=== PATIENT | female | born 1960 | race Caucasian/White ===

== ENCOUNTER 2019-01-27 09:15 | Inpatient (IN) | payer SELFPAY ==
--- NOTE | 2019-01-27 09:56 | RAD ---
EXAM: 3 views of the left wrist HISTORY: Wrist pain after fall COMPARISON: None FINDINGS: 3 views of the left wrist shows a comminuted intra-articular distal radius fracture and ass ociated ulnar styloid fracture. Moderate overlying soft tissue tissue swelling is seen. No degenerative changes are present. IMPRESSION: Distal radius and associated ulnar styloid fracture
[2019-01-27] MEDS ORDERED: Bupivacaine 0.5% 10 ML VIAL ONE (10:09)
[2019-01-27] MEDS ORDERED: Ketorolac Tromethamine 30 MG/ML VIAL ONE (10:09)
[2019-01-27] MEDS ORDERED: Adacel (T-DAP) 0.5 ML SYRINGE ONE (10:21)
[2019-01-27 10:31] LABS: #Eosinphils 0.1 thou/uL (0.0-0.7); #Lymphocytes 2.7 thou/uL (1.20-3.40); #Monocytes 0.6 thou/uL (0.11-0.59); #Neutrophils 7.9 thou/uL (1.40-6.50); %Basophils 0.3 % (0.0-1.0); %Eosinophils 0.7 % (0.0-10.0); %Lymphocytes 24.3 % (21.0-51.0); %Neutrophils 69.8 % (42.0-75.0); Hemoglobin 15.9 g/dL (12.0-16.0); Mean Corpuscular HGB CONC 34.9 g/dL (32.0-36.0); Mean Corpuscular Hemoglobin 31.8 pg (27.0-31.0); Mean Corpuscular Volume 91.2 fL (78.0-98.0); Mean Platelet Volume 6.6 fL (7.4-10.4); Platelet Count 296 thou/uL (130-400); RBC Distribution Width 11.7 % (11.5-14.5); White Blood Cell (WBC) Count 11.3 thou/uL (4.8-10.8)
[2019-01-27 10:36] LABS: INR-International Normal Ratio 0.9; PTT 31.5 SEC (22.9-36.1); Prothrombin Time 12.5 SEC (12.0-14.7)
--- NOTE | 2019-01-27 10:38 | RAD ---
CHEST 1 VIEW: Date: 01/27/19 HISTORY: Preoperative evaluation. FINDINGS: Heart size is normal. The lungs are clear. No confluent pneumonia, overt edema, or pleural effusion. IMPRESSION: No acute intrathoracic disease. POS: OFF
[2019-01-27] MEDS ORDERED: GENTAMICIN SULFATE IVPB SCH (11:00)
[2019-01-27] MEDS ORDERED: CEFAZOLIN 2 GM in Premix Bag 1 BAG IVPB SCH (11:00)
[2019-01-27] MEDS ORDERED: ADMIXTURE FEE CHEMO IVPB SCH (11:00)
[2019-01-27] MEDS ORDERED: [UNRECOGNIZED DRUG - OTHER] IVPB SCH (11:00)
[2019-01-27 11:01] LABS: ALT (SGPT) 15 U/L (8-55); AST (SGOT) 16 U/L (5-34); Albumin 4.6 g/dL (3.5-5.0); Alkaline Phosphatase 81 U/L (40-150); Anion Gap 14 mmol/L (10-20); BUN (Urea Nitrogen) 14 mg/dL (9.8-20.1); Bilirubin, Total 0.4 mg/dL (0.2-1.2); Calc. Creatinine Clearance 0 mL/min (70-130); Calcium 9.9 mg/dL (7.8-10.44); Carbon Dioxide 26 mmol/L (22-29); Chloride 102 mmol/L (98-107); Estimated GFR-MDRD 66; Globulin 3.5 g/dL (2.4-3.5); Glucose 111 mg/dL (70-105); Potassium 3.9 mmol/L (3.5-5.1); Protein, Total 8.1 g/dL (6.0-8.3); Sodium 138 mmol/L (136-145)
--- NOTE | 2019-01-27 11:05 | CON ---
DATE OF CONSULTATION: This is Luis Schmidt PA-C dictating a report for Kvng Sykes MD. HISTORY OF PRESENT ILLNESS: We were asked by ER to see the patient. The patient is a very sweet 58-year-old female who has recently moved to the area from [place]. Her daughter works at [employer] in the [employer] The patient was walking her dog when a pit bull became interested in her dog. The dog backed into her and knocked her back where she fell with an outstretched hand ended up with a left distal wrist fracture. She has no other issues and is for the most part quite healthy. Did not hit her head. No loss of consciousness. No numbness or tingling in the hand. Any movement of that hand or wrist causes her extensive pain. PAST MEDICAL HISTORY: Positive for diet-controlled cholesterol. She has been known to have hypotension. PAST SURGICAL HISTORY: She has had a couple of lumpectomies, episiotomy repairs, and apparently she had some form of surgery on the same wrist when she was 10, but doing x-rays, I see no hardware. MEDICATION: OTC vitamins. ALLERGIES: NONE, BUT SHE WOULD LIKE TO STAY WAY FROM PAIN MEDICATIONS BECAUSE SHE IS IN REMISSION. SOCIAL HISTORY: Not currently working, but worked for the [place] [employer] for some years. Smokes less than a 4th of pack cigarettes a day. No alcohol or drug products whatsoever. FAMILY HISTORY: For this incident is noncontributory. REVIEW OF SYSTEMS: No chest pain or shortness of breath. No bowel or bladder problems. No neurologic problems. Her only complaints currently are left wrist pain. Otherwise, rest of review of systems negative. PHYSICAL EXAMINATION: GENERAL: Well-nourished, well-developed female, alert, pleasant, in mild distress, a little tearful over her current situation, but speech is clear. Alert and oriented x3. HEENT: Normal exam. Face symmetric. Tongue midline. NECK: Supple. Trachea midline. RESPIRATORY: No distress. Breathing 16 respirations a minute. EXTREMITIES: Upper extremities; equal size, shape, symmetry. Normal bulk and tone with the exception of the left wrist, which is definitely not aligned. She has good movement to the digits and good sensations, but her wrist is quite tender. She also has a puncture on the volar side, quite small. She is awaiting a hematoma block with straightening. ASSESSMENT: Left distal radius fracture, open. PLAN: The patient has been n.p.o., has not had anything to eat today. We will plan on adding her on to the operating room schedule for a distal radius repair. I have explained the procedure to the patient, the risks and benefits, and her questions and concerns have been addressed and she is amenable to go forth with surgery. Job ID: [id number]
--- NOTE | 2019-01-27 11:44 | RAD ---
EXAM: 3 views of the left wrist HISTORY: Distal radius fracture COMPARISON: 01/27/2019 FINDINGS: 3 views of the left wrist shows a comminuted fracture of the distal radius and associated u lnar styloid fracture. An overlying splint obscures fine bony and soft tissue detail. IMPRESSION: Distal radius and ulnar styloid fracture
[2019-01-27] MEDS ORDERED: hydrALAZINE 20 MG/ML VIAL SLOW IVP PRN (11:54)
[2019-01-27] MEDS ORDERED: Dextrose 5% in Water 1,000 ML IV PRN (11:54)
[2019-01-27] MEDS ORDERED: Dextrose 50% Abboject 50 ML SYRINGE SLOW IVP PRN (11:54)
[2019-01-27] MEDS ORDERED: Ondansetron PF 4 MG/2 ML Vial IVP PRN (11:54)
[2019-01-27] MEDS ORDERED: Promethazine HCl 25 MG/ML VIAL IM/IV PRN (11:54)
[2019-01-27] MEDS ORDERED: Cyclobenzaprine 10 MG TAB PO PRN (11:57)
[2019-01-27] MEDS ORDERED: traMADol HCl 50 MG TAB PO PRN (11:57)
--- NOTE | 2019-01-27 12:34 | HP ---
TRAUMA SURGEON: Dr. Frausto. CONSULTING PHYSICIAN: Dr. Sykes. HISTORY OF PRESENT ILLNESS: The patient is a 58-year-old female, who presented to the emergency department after a mechanical fall this morning while walking her dog. She drove herself to the emergency department. She reported a loose dog charged towards her dog. This caused her dog to back into her and she fell onto her butt. She did notice that she had a left-sided wrist deformity with bleeding. She was able to ambulate to her car and put her dog away before coming to the emergency department. Upon arrival, it was noted that she had a left open distal radius ulnar fracture. Dr. Sykes of Orthopedic Surgery was consulted and evaluated the patient and they recommended operative fixation. At the time of my evaluation, the patient reported mild sided left wrist pain. She denied loss of consciousness or anticoagulation use. She was able to ambulate without difficulties. She denied any spinal pain. Denied neck pain. Denied hitting her head. REVIEW OF SYSTEMS: All additional 10-point review of systems negative except as indicated above. PAST MEDICAL HISTORY: The patient has a history of hyperlipidemia. She does not take any medication for it and just controls it with diet and exercise. Also, has a history of alcohol abuse. She has been sober for 11 years. She is concerned about taking habit-forming pain medications. PAST SURGICAL HISTORY: The patient had surgery on her left wrist at the age of 9 or 10. She also had two lumpectomies of the left breast, which were both benign. SOCIAL HISTORY: The patient does smoke cigarettes. She has not had alcohol in the past 11 years. Denies any other history of drug use. She lives at home alone with her dog. MEDICATIONS: The patient takes, 1. Vitamins. 2. Calcium [id number]. No prescription medications. ALLERGIES: NO KNOWN DRUG ALLERGIES. PHYSICAL EXAMINATION: VITAL SIGNS: Temperature 98.2, pulse 72, respirations 22, oxygen saturation 98% on room air, blood pressure 124/68. PRIMARY SURVEY: Airway intact. Adequate breath sounds bilaterally. 2+pulses in the bilateral radials, femorals, and DPs bilaterally. GCS is 15. Gross motor and sensation are intact. No lacerations, bruising, or external bleeding noted. Left upper extremity with a splint from her fingers to her left elbow. Previously reported that there was an open fracture at that site by the emergency room physician. There was no active bleeding at the time of my evaluation. SECONDARY SURVEY: HEAD: Normocephalic and atraumatic. No gross palpable skull deformities or tenderness. EYES: Pupils 3 to 2, equal, round, reactive to light bilaterally. ENT: No hemotympanum. No epistaxis. No septal hematoma. Midface, stable to manipulation. No blood in the oropharynx. Dentition is intact. No anterior neck injury/crepitus/tenderness. C-SPINE: No step-offs or deformities, nontender. C-collar not in place. CHEST: Nontender. No abrasions or ecchymosis noted. No crepitus. Equal chest movement. ABDOMEN: Soft, nontender, nondistended. PELVIS: Stable to manipulation. No abrasions or ecchymosis noted. RECTAL: Deferred. GENITOURINARY: Deferred. EXTREMITIES: No gross deformities. There is a splint to the left upper extremity from the fingers to the elbow with no signs of bleeding. No abrasions or ecchymosis. 2+ pulses in the bilateral radials, femorals, and DPs. BACK/SPINE: No step-offs, deformities, or tenderness to palpation of the thoracic or lumbar spine. No abrasions or ecchymosis noted. NEUROLOGIC: 5/5 strength in bilateral energy scheduler, plantar flexion, dorsiflexion. Grossly normal sensation x4. EXTREMITIES: GCS is 15. LABORATORY FINDINGS: White count 11.3, hemoglobin 15.9, hematocrit 45.6, platelets 296. INR 0.9. Sodium 138, potassium 3.9, chloride 102, carbon dioxide 26, BUN 14, creatinine 0.87, glucose 111, total bilirubin 0.4, AST 16, ALT 15. DIAGNOSTIC FINDINGS: X-ray of the left wrist demonstrates distal radius and associated ulnar styloid fracture. Chest x-ray demonstrates no acute intrathoracic process. X-ray of the left wrist demonstrates distal radius and ulnar styloid fracture. ASSESSMENT: 1. Status post mechanical fall from standing. 2. Left open distal radius ulnar fracture. 3. History of alcohol abuse, sober 11 years. PLAN: The patient will be admitted to the Trauma Service and is planning to go to the OR today with Orthopedic Surgery for fixation of the left distal open radius ulnar fracture. She has received antibiotics and tetanus in the emergency department. Postoperatively, the patient will work with Physical and Occupational Therapy. It is likely she will need IV antibiotics, which will cause her to be admitted overnight. She will be able to be discharged home as soon as her pain is well controlled. She is tolerating a regular diet and is able to work with Physical and Occupational Therapy. The patient does not want to take addictive pain medications as she has a history of alcohol abuse. The patient will be discussed with Dr. Frausto after this dictation. Job ID: [id number]
[2019-01-27] MEDS ORDERED: Acetaminophen 1,000 MG in Premix Bag 1 BAG IVPB SCH (13:00)
[2019-01-27] MEDS ORDERED: Fentanyl 100 MCG/2 ML VIAL ONE ×2 (15:17→16:06)
[2019-01-27] MEDS ORDERED: Midazolam HCl 2 mg/2 ml Vial ONE (15:17)
[2019-01-27] MEDS ORDERED: HYDROcodone/Acetaminophen 5/325 mg Tablet ONE ×2 (18:26)
--- NOTE | 2019-01-27 18:57 | RAD ---
TWO VIEWS OF THE LEFT WRIST: 01/27/19 COMPARISON: 01/27/19. HISTORY: Distal radius fracture. FINDINGS/IMPRESSION: Two limited intraoperative fluoroscopic views shows the patient to be status post ORIF of the comminu duc distal radius fracture with a plate and screws. There is much improved alignment of the fracture. POS: C
[2019-01-27] MEDS: Sodium Chloride 0.9% 1,000 ML IV SCH (19:50)
[2019-01-27] MEDS: Gabapentin 100 MG CAP PO SCH ×2 (19:51→20:16)
[2019-01-27] MEDS: CEFAZOLIN 2 GM in Premix Bag 1 BAG IVPB SCH (19:51)
[2019-01-27] MEDS: Ibuprofen 600 MG TAB PO SCH ×2 (19:53→21:45)
[2019-01-27] MEDS: Acetaminophen 1,000 MG in Premix Bag 1 BAG IVPB SCH ×2 (19:58→20:16)
[2019-01-27] MEDS: Senokot S 8.6-50 MG TAB PO SCH (20:16)
[2019-01-27] MEDS: Famotidine 20 MG TAB PO SCH (20:16)
[2019-01-27] MEDS ORDERED: Bupivacaine HCl 0.5%/Epinephrine 1:200,000/PF 30 ml Vial ONE (21:06)
[2019-01-27] MEDS: traMADol HCl 50 MG TAB PO PRN (21:45)
[2019-01-27 21:48] VITALS: BMI 25.7
--- NOTE | 2019-01-27 21:52 | PRG ---
DATE OF SERVICE: 01/27/2019 SUBJECTIVE: This is a 58-year-old female status post mechanical fall. The patient is postop repair of left open distal radius ulnar fracture by Dr. Sykes earlier today. The patient is awake, alert, in no distress. The patient reports that her pain is well controlled at this time. The patient is tolerating fluids and regular diet at this time. OBJECTIVE: VITAL SIGNS: Stable, afebrile. GENERAL: Middle-aged female, sitting up in hospital bed, in no acute distress. RESPIRATORY: Equal chest rise and fall, no respiratory distress. EXTREMITIES: Splint to left upper extremity, positive movement and sensation to fingers, cap refill less than 2. ASSESSMENT: 1. Status post mechanical fall from standing. 2. Left open distal radius ulnar fracture, postop repair. 3. History of alcohol abuse, sober 11 years. 4. Acute traumatic pain. PLAN: Continue regular diet as tolerated. Stop IV maintenance fluids in the morning if the patient continues to tolerate regular diet. Continue IV antibiotics per Ortho. We will have Physical and Occupational Therapy work with the patient tomorrow. The plan was discussed with the patient who agrees. Job ID: [id number] [facility]
[2019-01-27] MEDS ORDERED: Lidocaine 1% PF 5 ML VIAL ONE (22:26)
[2019-01-27] MEDS ORDERED: PROPOFOL 200 MG/20 ML VIAL ONE (22:26)
[2019-01-27] MEDS ORDERED: ePHEDrine 50 MG/ML VIAL ONE (22:26)
[2019-01-27] MEDS ORDERED: Dexamethasone 20 MG/5 ML VIAL ONE (22:26)
[2019-01-27] MEDS ORDERED: Ondansetron PF 4 MG/2 ML Vial ONE (22:26)
--- NOTE | 2019-01-27 23:41 | OP ---
DATE OF PROCEDURE: 01/27/2019 OPERATION: Open reduction and internal fixation of left open distal radius and ulnar fracture. PREOPERATIVE DIAGNOSIS: Open left distal radius and ulnar fracture. POSTOPERATIVE DIAGNOSIS: Open left distal radius and ulnar fracture. COMPLICATIONS: None. ESTIMATED BLOOD LOSS: Minimal. PERPETUAL INVENTORY CLERK: Beti Palacio PA-C IMPLANT: Synthes volar distal radial plate with multiple nonlocking and locking screws. INDICATIONS: Ms. Hobbs is a 58-year-old female who was walking her dog when she fell. She fractured her left distal radius. She had an open laceration over the ulna. She was splinted in the emergency department and was added for this surgical operation. She was indicated for open reduction and internal fixation to restore anatomic alignment and irrigate the wounds to prevent infection. Risks have been reviewed in detail. She elected to proceed. DESCRIPTION OF PROCEDURE: Ms. Hobbs was identified in the preoperative holding area. Her correct extremity was marked. She was carried to the operating room. She was positioned supine. General anesthesia was induced. A multidisciplinary time-out was performed. The left upper extremity was prepped and draped in sterile fashion. We began the procedure with volar FCR approach to the wrist. We dissected down through the subcutaneous tissues to the FCR tendon. The tendon sheath was opened. We reflected the tendon medially. We opened the deep aspect of the sheath. We then worked more deeply down to the pronator quadratus which was elevated from the distal radius. At this point, we examined the fracture. We reduced the fracture with traction as well as a Alpha elevator. Once we had an anatomic reduction, we took x-rays confirming this. We then placed our volar distal radial plate. We placed multiple screws proximally and distally locking the plate to the bone and holding our reduction. We took x-ray images confirming hardware placement. There were no complications. We thoroughly irrigated with copious lavage. We then closed appropriately in layers and placed a splint. A sterile dressing was applied. The patient was taken to the recovery room at this point in good condition. Job ID: [id number]
[2019-01-28] MEDS: CEFAZOLIN 2 GM in Premix Bag 1 BAG IVPB SCH (00:53)
[2019-01-28] MEDS: Acetaminophen 1,000 MG in Premix Bag 1 BAG IVPB SCH (00:53)
[2019-01-28] MEDS: Sodium Chloride 0.9% 1,000 ML IV SCH (00:53)
[2019-01-28] MEDS: Ibuprofen 600 MG TAB PO SCH (04:58)
[2019-01-28 05:20] LABS: #Lymphocytes 1.2 thou/uL (1.20-3.40); #Monocytes 0.4 thou/uL (0.11-0.59); #Neutrophils 10.1 thou/uL (1.40-6.50); %Lymphocytes 10.3 % (21.0-51.0); %Monocytes 3.2 % (0.0-10.0); %Neutrophils 86.4 % (42.0-75.0); Hemoglobin 13.3 g/dL (12.0-16.0); Mean Corpuscular HGB CONC 35.2 g/dL (32.0-36.0); Mean Corpuscular Hemoglobin 32.8 pg (27.0-31.0); Mean Corpuscular Volume 93.2 fL (78.0-98.0); Mean Platelet Volume 6.8 fL (7.4-10.4); Platelet Count 249 thou/uL (130-400); RBC Distribution Width 11.6 % (11.5-14.5); Red Blood Cell (RBC) Count 4.05 mill/uL (4.20-5.40); White Blood Cell (WBC) Count 11.7 thou/uL (4.8-10.8)
[2019-01-28 06:02] LABS: Anion Gap 12 mmol/L (10-20); BUN (Urea Nitrogen) 13 mg/dL (9.8-20.1); Calc. Creatinine Clearance 83 mL/min (70-130); Carbon Dioxide 22 mmol/L (22-29); Chloride 104 mmol/L (98-107); Estimated GFR-MDRD 76; Glucose 122 mg/dL (70-105); Magnesium 1.9 mg/dL (1.6-2.6); Phosphorus 4.3 mg/dL (2.3-4.7); Potassium 4.2 mmol/L (3.5-5.1); Sodium 134 mmol/L (136-145)
[2019-01-28] MEDS ORDERED: Magnesium 2 GM/50 ML 2 GM in Premix Bag 1 BAG IVPB SCH (08:00)
[2019-01-28] MEDS ORDERED: Acetaminophen 500 MG TAB PO SCH ×2 (08:00→12:00)
[2019-01-28] MEDS: Gabapentin 100 MG CAP PO SCH (08:39)
[2019-01-28] MEDS: Senokot S 8.6-50 MG TAB PO SCH (08:39)
[2019-01-28] MEDS: Famotidine 20 MG TAB PO SCH (08:40)
[2019-01-28] MEDS: traMADol HCl 50 MG TAB PO PRN (08:46)
[2019-01-28] MEDS ORDERED: Polyethylene Glycol 3350 17 GM Packet PO SCH (09:00)
[2019-01-28] MEDS ORDERED: Aspirin 81 mg Enteric Coated Tablet PO SCH (09:00)
[2019-01-28 11:58] VITALS: BP 115/76; TEMP 97.9
--- NOTE | 2019-01-29 02:16 | DIS ---
DATE OF ADMISSION: 01/27/2019 DATE OF DISCHARGE: 01/28/2019 ADMISSION DIAGNOSIS: Mechanical fall from standing and left open distal radius ulnar fracture. DISCHARGE DIAGNOSIS: Mechanical fall from standing and left open distal radius ulnar fracture. CONSULTING PHYSICIAN: Dr. Sykes, Orthopedic Surgery. PROCEDURES PERFORMED: The patient went to the OR on January 27, 2019, and had ORIF of the left open distal radius and ulnar fracture. DISCHARGE DISPOSITION: Home. DISCHARGE CONDITION: Satisfactory. PHYSICAL EXAMINATION: VITAL SIGNS: Temperature 97.9, pulse 79, respirations 16, oxygen saturation 97% on room air, and blood pressure 115/76. GENERAL: Well-appearing middle-aged female, sitting up in bed with no signs of acute distress. PULMONARY: Equal chest rise and fall. Clear breath sounds bilaterally. No signs of acute respiratory distress. CARDIAC: Regular rate and rhythm. No murmurs, gallops, or rubs. GASTROINTESTINAL: Abdomen is soft, nontender, and nondistended. EXTREMITIES: 2+ pulses in all extremities. No significant swelling noted. Gross motor and sensation are intact. Left upper extremity with splint that is in place. NEUROLOGIC: GCS is 15. DISCHARGE INSTRUCTIONS: The patient was discharged home. Activity as tolerated. Nonweightbearing to the left upper extremity. Regular diet. DISCHARGE MEDICATIONS: 1. Tylenol. 2. Aspirin. 3. Flexeril. 4. Gabapentin. 5. Ibuprofen. 6. Lovenox. 7. Tramadol. FOLLOWUP APPOINTMENTS: The patient is to follow up with Dr. Sykes in 14 days. This is merely a summary of the patient's hospitalization. For full details, please see her medical record in its entirety. Job ID: [id number]
--- NOTE | 2019-02-06 15:22 | EKG ---
Test Reason : Blood Pressure : / mmHG Vent. Rate : 060 BPM Atrial Rate : 060 BPM P-R Int : 128 ms QRS Dur : 080 ms QT Int : 402 ms P-R-T Axes : 057 046 042 degrees QTc Int : 402 ms Normal sinus rhythm Normal ECG Confirmed by EVER MOLINA, JAY ([id number]), senior technical editor DAGMAR BERNAL ([id number]) on 02/06/2019 3:21:58 PM Referred By: Confirmed By:JAY CURTIS MD
== END 2019-01-28 12:15 | disposition home or self-care (01) | DRG 512 ==
LOC: ERS 09:15 → SDC 11:12 → SJJU 19:24
PROVIDERS: ADMIT Surgery; ATTEND Surgery
PROC: 0PSJ04Z Reposition Left Radius with Internal Fixation Device, Open Approach (ICD-10-PCS; principal; 2019-01-27)
PROC: 0PSL04Z Reposition Left Ulna with Internal Fixation Device, Open Approach (ICD-10-PCS; 2019-01-27)
DX: S52.502B Unspecified fracture of the lower end of left radius, initial encounter for open fracture type I or II (principal); S52.602B Unspecified fracture of lower end of left ulna, initial encounter for open fracture type I or II; W18.30XA Fall on same level, unspecified, initial encounter; E78.5 Hyperlipidemia, unspecified; F17.210 Nicotine dependence, cigarettes, uncomplicated; Y93.K1 Activity, walking an animal; Y92.9 Unspecified place or not applicable; Y99.9 Unspecified external cause status
CPT/HCPCS: 25565; 36415; 71045; 76000; 80048; 80053; 83735; 84100; 85025; 85610; 85730; 90471; 90715; 93005; 96365; 96367; 96375; C1713; J0131; J0670; J0690; J1100; J1580; J1885; J2001; J2250; J2405; J2704; J3010; J3475; J3490